=== PATIENT | female | born 1945 | race Caucasian/White ===

== ENCOUNTER 2018-03-21 13:54 | Day surgery (SDC) | payer MEDICARE ==
[~2018-03-21] VITALS: Ht 162.6 cm; Wt 51.4 kg
[~2018-03-21 13:54] MED LIST: CALTRATE-600 W600 MG PO; CENTRUM SILVER1 TA2 PO; EVISTA; VITAMIN B12 PO
[2018-03-21 14:24] VITALS: BP 140/50; PULSE 95; TEMP 98.3
[2018-03-21 17:30] VITALS: BP 138/68; PULSE 91
[2018-03-21 17:40] VITALS: BP 149/71; PULSE 82
[2018-03-21 17:54] VITALS: BP 128/53; PULSE 73
[2018-03-21 18:06] VITALS: BP 136/66; PULSE 80; TEMP 97.6
== END 2018-03-21 18:29 | disposition home or self-care (01) ==
LOC: SDCO 13:54
DX: C67.2 Malignant neoplasm of lateral wall of bladder (principal); Z90.12 Acquired absence of left breast and nipple
CPT/HCPCS: J1100; J2405; J2704; J3010; J7120; Q9967